=== PATIENT | male | born 1995 | race Caucasian/White ===

== ENCOUNTER 2020-03-15 16:31 | Emergency (ER) | payer SELFPAY ==
--- NOTE | 2020-03-15 16:54 | EDM.PDOC ---
ED HPI GENERAL MEDICAL PROBLEM - General Stated Complaint: BEE STING,RIGHT FOOT SWOLLEN Time Seen by Provider: 03/15/20 16:50 Source of Information: Reports: Patient History Limitations: Reports: No Limitations - History of Present Illness INITIAL COMMENTS - FREE TEXT/NARRATIVE: Patient presented to the ED because of bee sting on the right foot. It's now swollen and tender. He was applying ice but it's still swollen. Right Foot Pain Score (Numeric/FACES): 5 - Related Data Allergies Allergy/AdvReac Type Severity Reaction Status Date / Time No Known Allergies Allergy Verified 03/15/20 16:45 Home Meds: Home Meds predniSONE [Prednisone] 20 mg PO DAILY #5 tablet 03/15/20 [Rx] ED ROS GENERAL - Review of Systems Review Of Systems: See Below Constitutional: Reports: No Symptoms HEENT: Reports: No Symptoms Respiratory: Reports: No Symptoms Cardiovascular: Reports: No Symptoms Endocrine: Reports: No Symptoms GI/Abdominal: Reports: No Symptoms : Reports: No Symptoms Musculoskeletal: Reports: No Symptoms Skin: Reports: Change in Color ED EXAM, GENERAL - Physical Exam Exam: See Below Exam Limited By: No Limitations General Appearance: Alert, No Apparent Distress Eye Exam: Bilateral Eye: PERRL Ears: Normal External Exam, Normal Canal Nose: Normal Inspection, Normal Mucosa Throat/Mouth: Normal Inspection, Normal Lips, Normal Teeth Head: Atraumatic, Normocephalic Neck: Normal Inspection, Supple, Non-Tender, Full Range of Motion Respiratory/Chest: No Respiratory Distress, Lungs Clear, Normal Breath Sounds Cardiovascular: Normal Peripheral Pulses, Regular Rate, Rhythm, No Edema, No Gallop GI/Abdominal: Normal Bowel Sounds, Soft, Non-Tender, No Organomegaly Back Exam: Normal Inspection, Full Range of Motion Extremities: Normal Inspection, Joint Swelling Course - Vital Signs Last Recorded V/S: Last Vital Signs Temp 36.3 C 03/15/20 16:47 Pulse 75 03/15/20 16:47 Resp 16 03/15/20 16:47 BP 123/72 03/15/20 16:47 Pulse Ox 99 03/15/20 16:47 Departure - Departure Time of Disposition: 16:50 Disposition: Home, Self-Care 01 Condition: Good Clinical Impression: Bee sting - Discharge Information Prescriptions: predniSONE [Prednisone] 20 mg PO DAILY #5 tablet Instructions: Bee, Wasp, or Hornet Sting, Adult Referrals: PCP,None [Primary Care Provider] - Forms: ED Department Discharge Additional Instructions: please read the discharge instructions on bee sting take prednisone 20 mg daily for 5 days apply ice 3 times daily until swelling is gone apply hydrocortisone cream(over the counter) when itching is not controlled by the prednisone follow up as needed Sepsis Event Note (ED) - Evaluation Sepsis Screening Result: No Definite Risk - Focused Exam Vital Signs: Vital Signs Temp Pulse Resp BP Pulse Ox 03/15/20 16:47 36.3 C 75 16 123/72 99
== END 2020-03-15 17:03 | disposition home or self-care (01) ==
LOC: FB.ED 16:31
DX: T63.441A Toxic effect of venom of bees, accidental (unintentional), initial encounter (principal)
CPT/HCPCS: 99282; 99283